=== PATIENT | male | born 1950 | race Caucasian/White ===

== ENCOUNTER 2024-08-03 18:04 | Inpatient (IN) | payer MEDICARE, OTHER ==
[2024-08-03 21:02] VITALS: BMI 34.4
[2024-08-03] MEDS ORDERED: Ondansetron ODT 4 MG TAB SL PRN (21:57)
[2024-08-03] MEDS: hydrALAZINE 25 MG TAB PO SCH (22:20)
[2024-08-03] MEDS: NIFEdipine XL 30 MG ER.TAB PO SCH (22:21)
[2024-08-03] MEDS: levETIRAcetam 500 MG TAB PO SCH (22:21)
[2024-08-03] MEDS: Sacubitril 49 MG/Valsartan 51 MG TABLET PO SCH (22:21)
[2024-08-04 06:37] VITALS: BMI 34.4
[2024-08-04 07:21] VITALS: BP 159/78; TEMP 97.5
[2024-08-04] MEDS: Cyanocobalamin (Vitamin B-12) 1,000 MCG TAB PO SCH (08:03)
[2024-08-04] MEDS: hydrALAZINE 25 MG TAB PO SCH (08:03)
[2024-08-04] MEDS: Sacubitril 49 MG/Valsartan 51 MG TABLET PO SCH (08:03)
[2024-08-04] MEDS: levETIRAcetam 500 MG TAB PO SCH (08:03)
[2024-08-04] MEDS: Pantoprazole DR 40 MG TAB PO SCH (08:03)
[2024-08-04] MEDS: Potassium Chloride 20 MEQ TAB PO SCH (08:04)
[2024-08-04] MEDS: Amiodarone 200 MG TAB PO SCH (08:04)
[2024-08-04] MEDS: Folic Acid 1 MG TAB PO SCH (08:04)
[2024-08-04] MEDS: NIFEdipine XL 30 MG ER.TAB PO SCH (08:04)
[2024-08-04] MEDS: Thiamine 100 MG TAB PO SCH (08:07)
[2024-08-04] MEDS ORDERED: FLU (Fluad Triv) TS24-25 (65UP)/MF59C/PF 45 MCG/0.5 ML Syringe IM ONE (09:00)
[2024-08-04] MEDS: Acetaminophen 500 MG TAB PO PRN (10:00)
[2024-08-04] MEDS ORDERED: Lorazepam 0.5 MG TAB PO PRN (10:48)
[2024-08-08] MEDS ORDERED: FLU (Fluad Triv) TS24-25 (65UP)/MF59C/PF 45 MCG/0.5 ML Syringe IM ONE (12:00)
== END 2024-08-04 12:05 | disposition short-term general hospital (02) | DRG 945 ==
LOC: MADMS 20:25
PROVIDERS: ADMIT Family Medicine; ATTEND Family Medicine
PROC: F07Z9ZZ Gait Training/Functional Ambulation Treatment (ICD-10-PCS; principal; 2024-08-04)
DX: R53.1 Weakness (principal); G81.91 Hemiplegia, unspecified affecting right dominant side; R53.81 Other malaise; I48.0 Paroxysmal atrial fibrillation; I10 Essential (primary) hypertension; Z79.01 Long term (current) use of anticoagulants; Z96.653 Presence of artificial knee joint, bilateral; J44.9 Chronic obstructive pulmonary disease, unspecified; E66.01 Morbid (severe) obesity due to excess calories; Z68.34 Body mass index [BMI] 34.0-34.9, adult
CPT/HCPCS: 70450

== ENCOUNTER 2024-08-04 12:01 | Emergency (ER) | payer MEDICARE, OTHER ==
[2024-08-04] MEDS ORDERED: Ketamine 50 MG/ML (10ML VIAL) ONE (12:13)
[2024-08-04] MEDS ORDERED: Midazolam HCl 5 mg/ml Vial ONE (12:14)
[2024-08-04] MEDS ORDERED: fentaNYL 50 mcg/mL 1 mL Vial ONE ×3 (12:15→12:18)
[2024-08-04] MEDS ORDERED: EPINEPHrine 1 MG/ML VIAL ONE ×2 (12:18→12:24)
[2024-08-04 12:36] LABS: #Basophils 0.1 thou/uL (0.0-0.2); #Lymphocytes 0.9 thou/uL (1.20-3.40); #Monocytes 1.6 thou/uL (0.11-0.59); #Neutrophils 8.8 thou/uL (1.40-6.50); %Eosinophils 0.4 % (0.0-10.0); %Lymphocytes 7.5 % (21.0-51.0); %Monocytes 14.1 % (0.0-10.0); Hematocrit 35.5 % (42.0-52.0); Hemoglobin 11.7 g/dL (14.0-18.0); Mean Corpuscular HGB CONC 32.9 g/dL (32.0-36.0); Mean Corpuscular Hemoglobin 28.3 pg (27.0-31.0); Mean Platelet Volume 6.6 fL (7.4-10.4); Platelet Count 294 10x3/uL (130-400); RBC Distribution Width 12.8 % (11.5-14.5); Red Blood Cell (RBC) Count 4.12 mill/uL (4.70-6.10); White Blood Cell (WBC) Count 11.5 10x3/uL (4.8-10.8)
[2024-08-04 12:40] LABS: INR-International Normal Ratio 1.2; Prothrombin Time 14.8 sec (12.0-14.7)
[2024-08-04 12:41] LABS: PTT 30.2 sec (22.9-36.1)
[2024-08-04 12:50] LABS: Anion Gap 14 mmol/L (10-20); BUN (Urea Nitrogen) 32 mg/dL (8.4-25.7); Calc. Creatinine Clearance 0 mL/min (70-130); Carbon Dioxide 27 mmol/L (23-31); Chloride 94 mmol/L (98-107); Potassium 3.7 mmol/L (3.5-5.1); Sodium 131 mmol/L (136-145)
[2024-08-04 12:51] LABS: ALT (SGPT) 27 U/L (8-55); AST (SGOT) 30 U/L (5-34); Albumin 3.4 g/dL (3.4-4.8); Alkaline Phosphatase 83 U/L (40-110); Bilirubin, Total 0.6 mg/dL (0.2-1.2); Calcium 9.1 mg/dL (7.8-10.44); Estimated GFR 86; Globulin 3.9 g/dL (2.4-3.5); Glucose 131 mg/dL (83-110); Protein, Total 7.3 g/dL (5.8-8.1); Troponin I 0.017 ng/mL (< 0.028)
[2024-08-04] MEDS ORDERED: Sodium Chloride 0.9% 1,000 ML ONE (12:54)
[2024-08-04] MEDS ORDERED: Sodium Chloride 0.9% 300 ML ONE (12:54)
== END 2024-08-04 13:10 | disposition short-term general hospital (02) ==
LOC: MADERS 12:01
DX: I61.9 Nontraumatic intracerebral hemorrhage, unspecified (principal); I10 Essential (primary) hypertension; Z87.891 Personal history of nicotine dependence; E78.5 Hyperlipidemia, unspecified; E87.1 Hypo-osmolality and hyponatremia
CPT/HCPCS: 80053; 82962; 84484; 85025; 85610; 85730; 96374; 99284; J0171; J3010; J7030; 36416; J2250

== ENCOUNTER 2024-08-14 15:01 | Inpatient (IN) | payer MEDICARE, OTHER ==
[2024-08-14] MEDS ORDERED: FLU (Fluad Triv) TS24-25 (65UP)/MF59C/PF 45 MCG/0.5 ML Syringe IM ONE (17:15)
[2024-08-14] MEDS ORDERED: Senokot S 8.6-50 MG TAB PO PRN (17:43)
[2024-08-14] MEDS ORDERED: Ondansetron ODT 4 MG TAB PO PRN (17:43)
[2024-08-14] MEDS: Acetaminophen 325 MG TAB PO PRN (18:20)
[2024-08-14] MEDS: levETIRAcetam 500 MG TAB PO SCH (21:06)
[2024-08-14] MEDS: hydrALAZINE 25 MG TAB PO SCH (21:06)
[2024-08-14] MEDS: NIFEdipine XL 30 MG ER.TAB PO SCH (21:06)
[2024-08-14] MEDS: Sacubitril 49 MG/Valsartan 51 MG TABLET PO SCH (21:06)
[2024-08-14] MEDS: Rosuvastatin 10 MG TAB PO SCH (21:07)
[2024-08-14] MEDS: Lidocaine 4% Patch TD SCH (21:07)
[2024-08-14] MEDS: Diclofenac 1% 100 GM Topical GEL TP SCH (21:07)
[2024-08-14] MEDS: tiZANidine HCl 4 MG TAB PO PRN (22:04)
[2024-08-15] MEDS: Cyanocobalamin (Vitamin B-12) 1,000 MCG TAB PO SCH (08:49)
[2024-08-15] MEDS: Folic Acid 1 MG TAB PO SCH (08:49)
[2024-08-15] MEDS: Potassium Chloride 20 MEQ TAB PO SCH (08:50)
[2024-08-15] MEDS: Pantoprazole DR 40 MG TAB PO SCH (08:50)
[2024-08-15] MEDS: Thiamine 100 MG TAB PO SCH (08:50)
[2024-08-15] MEDS: Multivit, Therapeutic 1 TAB PO SCH (08:51)
[2024-08-15] MEDS: Amiodarone 200 MG TAB PO SCH (08:51)
[2024-08-15] MEDS: pyridOXINE 50 MG (B6) TAB PO SCH (08:53)
[2024-08-15] MEDS: Polyethylene Glycol 3350 17 GM Packet PO SCH (08:53)
[2024-08-15] MEDS: Transdermal Patch Removal TOP SCH (08:55)
[2024-08-15] MEDS: traMADol HCl 50 MG TAB PO PRN (12:44)
[2024-08-15] MEDS: FLU (Fluad Triv) TS24-25 (65UP)/MF59C/PF 45 MCG/0.5 ML Syringe IM ONE (17:26)
[2024-08-15] MEDS ORDERED: traMADol HCl 50 MG TAB PO PRN (18:28)
[2024-08-17] MEDS: Acetaminophen 325 MG TAB PO PRN (17:32)
[2024-08-18] MEDS ORDERED: Acetaminophen 500 MG TAB PO PRN (12:10)
[2024-08-18] MEDS: Acetaminophen 500 MG TAB PO SCH (12:14)
[2024-08-18] MEDS: Metoclopramide HCl 10 MG TAB PO SCH (13:06)
[2024-08-18] MEDS: Acetaminophen/Codeine 30-300mg Tablet PO PRN (17:56)
[2024-08-19] MEDS: Acetaminophen 500 MG TAB PO PRN (10:47)
[2024-08-20] MEDS: Metoclopramide HCl 10 MG TAB PO PRN (08:22)
[2024-08-21] MEDS: Acetaminophen/Codeine 30-300mg Tablet PO SCH (10:31)
[2024-08-22] MEDS ORDERED: Diclofenac 1% 100 GM Topical GEL TP PRN (10:56)
[2024-08-23 17:28] LABS: Bilirubin Negative (Negative); Blood, Urine Moderate (Negative); Clarity Hazy (Clear); Glucose, Urine (Dipstick) Negative (Negative); Ketone, Urine Negative (Negative); Leukocyte Negative (Negative); Nitrite Positive (Negative); Protein, Urine (Dipstick) 30 mg/dL (Neg-Trace); Specific Gravity, Urine 1.015 (1.005-1.030)
[2024-08-23 18:29] LABS: Anisocytosis SLIGHT = 6-15 cells (100X) (0-5/hpf); Band 12 % (5-11); Eosinophils 3 % (0-10); Hematocrit 30.2 % (42.0-52.0); Hypochromia SLIGHT = 6-15 cells (100X) (0-5/hpf); Lymphocytes 1 % (21-51); MDiff Complete? YES; Mean Corpuscular Hemoglobin 28.5 pg (27.0-31.0); Mean Corpuscular Volume 86.5 fl (78.0-98.0); Mean Platelet Volume 6.7 fL (7.4-10.4); Monocytes 11 % (0-10); Neutrophil 73 % (42-75); Platelet Adequacy Comment Appears Adequate; Platelet Count 232 10x3/uL (130-400); RBC Distribution Width 13.5 % (11.5-14.5); Red Blood Cell (RBC) Count 3.49 mill/uL (4.70-6.10); White Blood Cell (WBC) Count 12.9 10x3/uL (4.8-10.8)
[2024-08-23] MEDS: Nitrofurantoin Monohyd/M-Cryst 100 MG CAP PO SCH (21:32)
[2024-08-24 05:22] LABS: Hematocrit 28.9 % (42.0-52.0); Hemoglobin 9.8 g/dL (14.0-18.0); Mean Corpuscular HGB CONC 33.9 g/dL (32.0-36.0); Mean Corpuscular Hemoglobin 28.9 pg (27.0-31.0); Mean Corpuscular Volume 85.2 fl (78.0-98.0); Platelet Count 219 10x3/uL (130-400); RBC Distribution Width 13.2 % (11.5-14.5); White Blood Cell (WBC) Count 11.6 10x3/uL (4.8-10.8)
[2024-08-26] MEDS: Sulfameth/Trimethoprim DS 800-160mg TAB PO SCH (07:38)
[2024-08-29] MEDS: Cyanocobalamin (Vitamin B-12) 1,000 MCG TAB PO SCH (08:41)
[2024-08-31] MEDS: NIFEdipine XL 30 MG ER.TAB PO SCH (20:42)
[2024-09-01] MEDS: Metoprolol Tartrate 25 MG TAB PO SCH ×2 (10:06→22:18)
[2024-09-02] MEDS: Nystatin Cream 15 GM TUBE TOP SCH (07:21)
[2024-09-03 05:16] LABS: Hematocrit 28.6 % (42.0-52.0); Hemoglobin 9.6 g/dL (14.0-18.0); Mean Corpuscular HGB CONC 33.4 g/dL (32.0-36.0); Mean Corpuscular Hemoglobin 28.4 pg (27.0-31.0); Platelet Count 298 10x3/uL (130-400); RBC Distribution Width 13.6 % (11.5-14.5); Red Blood Cell (RBC) Count 3.36 mill/uL (4.70-6.10); White Blood Cell (WBC) Count 7.3 10x3/uL (4.8-10.8)
[2024-09-03 05:28] LABS: Anion Gap 16 mmol/L (10-20); BUN (Urea Nitrogen) 19 mg/dL (8.4-25.7); Calc. Creatinine Clearance 82 mL/min (70-130); Carbon Dioxide 21 mmol/L (23-31); Chloride 104 mmol/L (98-107); Estimated GFR 63; Glucose 107 mg/dL (83-110); Potassium 4.4 mmol/L (3.5-5.1); Sodium 137 mmol/L (136-145)
[2024-09-03 15:25] VITALS: BMI 32.6
[2024-09-03] MEDS: Betamethasone 0.1% Cream 15 GM TUBE TOP SCH (20:20)
[2024-09-07] MEDS ORDERED: hydrALAZINE 25 MG TAB PO PRN (13:58)
[2024-09-08] MEDS ORDERED: hydrALAZINE 25 MG TAB ONE (15:11)
[2024-09-08] MEDS: hydrALAZINE 25 MG TAB PO PRN (15:38)
[2024-09-08] MEDS ORDERED: Sacubitril 49 MG/Valsartan 51 MG TABLET ONE (20:11)
[2024-09-08] MEDS ORDERED: Rosuvastatin 10 MG TAB ONE (20:11)
[2024-09-08] MEDS ORDERED: NIFEdipine XL 30 MG ER.TAB ONE (20:11)
[2024-09-08] MEDS ORDERED: levETIRAcetam 500 MG TAB ONE (20:11)
[2024-09-08] MEDS: NIFEdipine XL 30 MG ER.TAB PO SCH (20:25)
[2024-09-09] MEDS ORDERED: NIFEdipine XL 30 MG ER.TAB ONE ×2 (08:11→22:00)
[2024-09-09] MEDS ORDERED: Sacubitril 49 MG/Valsartan 51 MG TABLET ONE ×2 (08:11→22:00)
[2024-09-09] MEDS ORDERED: levETIRAcetam 500 MG TAB ONE ×2 (08:11→22:00)
[2024-09-09] MEDS ORDERED: Multivit, Therapeutic 1 TAB ONE (08:11)
[2024-09-09] MEDS ORDERED: Folic Acid 1 MG TAB ONE (08:11)
[2024-09-09] MEDS ORDERED: Cyanocobalamin (Vitamin B-12) 1,000 MCG TAB ONE ×2 (08:11→09:00)
[2024-09-09] MEDS ORDERED: pyridOXINE 50 MG (B6) TAB ONE (08:11)
[2024-09-09] MEDS ORDERED: Pantoprazole DR 40 MG TAB ONE ×2 (08:11→09:00)
[2024-09-09] MEDS ORDERED: Acetaminophen 500 MG TAB ONE (08:11)
[2024-09-09] MEDS ORDERED: Thiamine 100 MG TAB ONE ×2 (08:11→09:00)
[2024-09-09] MEDS ORDERED: Potassium Chloride 20 MEQ TAB ONE (08:11)
[2024-09-09] MEDS ORDERED: Amiodarone 200 MG TAB ONE ×3 (08:11→09:00)
[2024-09-09] MEDS ORDERED: Multivitamin W/ Minerals 1 TAB ONE (09:00)
[2024-09-09] MEDS ORDERED: Rosuvastatin 20 MG TAB ONE (22:00)
[2024-09-10] MEDS ORDERED: NIFEdipine XL 90 MG ER.TAB ONE (09:00)
[2024-09-10] MEDS ORDERED: Pantoprazole DR 40 MG TAB ONE (09:00)
[2024-09-10] MEDS ORDERED: Rosuvastatin 20 MG TAB ONE (09:00)
[2024-09-10] MEDS ORDERED: pyridOXINE 50 MG (B6) TAB ONE ×2 (09:00)
[2024-09-10] MEDS ORDERED: Sacubitril 49 MG/Valsartan 51 MG TABLET ONE (09:00)
[2024-09-10] MEDS ORDERED: Multivitamin W/ Minerals 1 TAB ONE (09:00)
[2024-09-10] MEDS ORDERED: Thiamine 100 MG TAB ONE (09:00)
[2024-09-10] MEDS ORDERED: Cyanocobalamin (Vitamin B-12) 1,000 MCG TAB ONE (09:00)
[2024-09-11] MEDS ORDERED: NIFEdipine XL 60 MG ER.TAB ONE (09:00)
[2024-09-11] MEDS ORDERED: Sacubitril 49 MG/Valsartan 51 MG TABLET ONE (09:00)
[2024-09-11] MEDS ORDERED: Rosuvastatin 20 MG TAB ONE (09:00)
[2024-09-11] MEDS ORDERED: levETIRAcetam 500 MG TAB ONE (09:00)
[2024-09-11] MEDS: pyridOXINE 50 MG (B6) TAB ONE (12:10)
[2024-09-11] MEDS: NIFEdipine XL 30 MG ER.TAB PO SCH (20:00)
[2024-09-11] MEDS: Sacubitril 49 MG/Valsartan 51 MG TABLET PO SCH (20:01)
[2024-09-14] MEDS: Loperamide HCl 2 MG CAP PO PRN (09:25)
[2024-09-14] MEDS: Saccharomyces boulardii 250 MG CAP PO SCH (09:26)
[2024-09-14] MEDS: NIFEdipine XL 30 MG ER.TAB PO SCH (21:54)
[2024-09-15] MEDS ORDERED: Polyethylene Glycol 3350 17 GM Packet PO PRN (12:17)
[2024-09-16 04:41] VITALS: BMI 32.3
[2024-09-16 17:43] LABS: Campy jejuni + coli by PCR Negative (Negative); STEC Shiga Toxin 1+2 Negative (Negative); Salmonella spp. by PCR Negative (Negative); Shigella spp + EIEC by PCR Negative (Negative)
[2024-09-18 07:26] VITALS: BP 115/64; TEMP 99
== END 2024-09-18 09:30 | disposition home or self-care (01) | DRG 947 ==
LOC: MADMS 16:35
PROVIDERS: ADMIT Family Medicine; ATTEND Family Medicine
DX: R53.81 Other malaise (principal); I61.9 Nontraumatic intracerebral hemorrhage, unspecified; G91.9 Hydrocephalus, unspecified; E87.1 Hypo-osmolality and hyponatremia; N39.0 Urinary tract infection, site not specified; G40.909 Epilepsy, unspecified, not intractable, without status epilepticus; I48.0 Paroxysmal atrial fibrillation; I10 Essential (primary) hypertension; E78.5 Hyperlipidemia, unspecified; E03.9 Hypothyroidism, unspecified; Z96.653 Presence of artificial knee joint, bilateral; Z98.890 Other specified postprocedural states; Z79.899 Other long term (current) drug therapy; B37.2 Candidiasis of skin and nail
CPT/HCPCS: 36415; 36416; 70450; 71045; 74018; 80048; 81003; 85025; 85027; 87077; 87086; 87186; 87324; 87449; 87505; 90653

== ENCOUNTER 2024-08-15 19:58 | Emergency (ER) | payer MEDICARE ==
[2024-08-15 20:37] LABS: #Basophils 0.1 thou/uL (0.0-0.2); #Eosinophils 0.2 thou/uL (0.0-0.7); #Lymphocytes 0.8 thou/uL (1.20-3.40); #Monocytes 1.2 thou/uL (0.11-0.59); #Neutrophils 7.6 thou/uL (1.40-6.50); %Basophils 0.6 % (0.0-1.0); %Eosinophils 1.8 % (0.0-10.0); %Lymphocytes 7.9 % (21.0-51.0); %Monocytes 11.9 % (0.0-10.0); %Neutrophils 77.8 % (42.0-75.0); Hematocrit 30.1 % (42.0-52.0); Hemoglobin 10.1 g/dL (14.0-18.0); Mean Corpuscular HGB CONC 33.5 g/dL (32.0-36.0); Mean Corpuscular Hemoglobin 28.6 pg (27.0-31.0); Mean Corpuscular Volume 85.3 fl (78.0-98.0); Mean Platelet Volume 7.2 fL (7.4-10.4); Platelet Count 223 10x3/uL (130-400); RBC Distribution Width 13.2 % (11.5-14.5); Red Blood Cell (RBC) Count 3.53 mill/uL (4.70-6.10); White Blood Cell (WBC) Count 9.8 10x3/uL (4.8-10.8)
[2024-08-15 20:41] LABS: Bilirubin Negative (Negative); Blood, Urine Negative (Negative); Clarity Clear (Clear); Glucose, Urine (Dipstick) Negative (Negative); Ketone, Urine Negative (Negative); Leukocyte Negative (Negative); Nitrite Negative (Negative); Protein, Urine (Dipstick) Negative (Neg-Trace); Urobilinogen 0.2 mg/dL (Less than 2); pH, Urine 6.5 (5.0-9.0)
[2024-08-15 20:44] LABS: CAUTI Indications for Culture Alt mental st,lethar; Squamous Epithelial 0-3 HPF (0-3); WBC/HPF 0-3 HPF (0-3)
[2024-08-15 20:45] LABS: Urine Culture Reflex No No
[2024-08-15 20:48] LABS: INR-International Normal Ratio 1.2; PTT 29.8 sec (22.9-36.1); Prothrombin Time 14.8 sec (12.0-14.7)
[2024-08-15 20:57] LABS: ALT (SGPT) 16 U/L (8-55); AST (SGOT) 24 U/L (5-34); Albumin 2.9 g/dL (3.4-4.8); Alkaline Phosphatase 79 U/L (40-110); Anion Gap 15 mmol/L (10-20); BUN (Urea Nitrogen) 13 mg/dL (8.4-25.7); Bilirubin, Total 0.5 mg/dL (0.2-1.2); Calc. Creatinine Clearance 0 mL/min (70-130); Carbon Dioxide 25 mmol/L (23-31); Chloride 99 mmol/L (98-107); Estimated GFR 90; Globulin 3.3 g/dL (2.4-3.5); Glucose 118 mg/dL (83-110); Potassium 3.6 mmol/L (3.5-5.1); Protein, Total 6.2 g/dL (5.8-8.1); Sodium 135 mmol/L (136-145)
== END 2024-08-15 22:30 | disposition critical access hospital (66) ==
LOC: MADERS 19:58
DX: R51.9 Headache, unspecified (principal); R40.0 Somnolence; I10 Essential (primary) hypertension; E78.5 Hyperlipidemia, unspecified; Z87.891 Personal history of nicotine dependence; Z79.899 Other long term (current) drug therapy; Z55.6 Problems related to health literacy
CPT/HCPCS: 36415; 51702; 70450; 71045; 80053; 81001; 85025; 85610; 85730; 93005

== ENCOUNTER 2024-10-29 10:12 | Outpatient (CLI) | payer MEDICARE | END 2024-10-29 10:13 | disposition home or self-care (01) | LOC: MADCT 10:12 | PROVIDERS: ATTEND Neurological Surgery | DX: G91.9 Hydrocephalus, unspecified (principal); G96.00 Cerebrospinal fluid leak, unspecified | CPT/HCPCS: 70450 ==

== ENCOUNTER 2024-12-05 14:22 | Emergency (ER) | payer MEDICARE | END 2024-12-05 15:00 | disposition home or self-care (01) | LOC: MADERS 14:22 | DX: L03.314 Cellulitis of groin (principal); I10 Essential (primary) hypertension; J44.9 Chronic obstructive pulmonary disease, unspecified; Z87.891 Personal history of nicotine dependence | CPT/HCPCS: 87070; 87077; 87205; 99284 ==

== ENCOUNTER 2025-06-20 08:53 | Emergency (ER) | payer MEDICARE ==
[2025-06-20 09:26] LABS: Glucose, Urine (Dipstick) Negative (Negative); Leukocyte Moderate (Negative); Protein, Urine (Dipstick) 30 mg/dL (Neg-Trace); Specific Gravity, Urine 1.015 (1.005-1.030)
[2025-06-20 09:33] LABS: Bacteria/HPF 3+ HPF (None Seen); CAUTI Indications for Culture Dysuria,urgency,freq; WBC/HPF Greater Than 50 HPF (0-3)
[2025-06-20 09:34] LABS: Urine Culture Reflex Yes Yes
[2025-06-20] MEDS ORDERED: cefTRIAXone (ROCEPHIN) 1 GM VIAL ONE (09:56)
== END 2025-06-20 10:26 | disposition home or self-care (01) ==
LOC: MADERS 08:53
DX: N39.0 Urinary tract infection, site not specified (principal); I10 Essential (primary) hypertension; J44.9 Chronic obstructive pulmonary disease, unspecified; K21.9 Gastro-esophageal reflux disease without esophagitis; E78.00 Pure hypercholesterolemia, unspecified; Z86.73 Personal history of transient ischemic attack (TIA), and cerebral infarction without residual deficits; Z87.891 Personal history of nicotine dependence; Z79.899 Other long term (current) drug therapy
CPT/HCPCS: 81001; 87077; 87086; 87186; 96372; 99283; J0696

== ENCOUNTER 2025-08-19 12:51 | Emergency (ER) | payer MEDICARE ==
[2025-08-19 13:57] LABS: Glucose, Urine (Dipstick) Negative (Negative); Leukocyte Large (Negative); Protein, Urine (Dipstick) 30 mg/dL (Neg-Trace); Specific Gravity, Urine 1.015 (1.005-1.030)
[2025-08-19 14:05] LABS: CAUTI Indications for Culture Dysuria,urgency,freq; WBC/HPF Greater Than 50 HPF (0-3)
[2025-08-19 14:06] LABS: Bacteria/HPF 4+ HPF (None Seen)
[2025-08-19 14:07] LABS: Urine Culture Reflex Yes Yes
[2025-08-19 14:15] LABS: ALT (SGPT) 12 U/L (Less than 45); AST (SGOT) 21 U/L (11-34); Albumin 3.8 g/dL (3.1-4.5); Alkaline Phosphatase 99 U/L (40-110); Anion Gap 15 mmol/L (10-20); BUN (Urea Nitrogen) 16 mg/dL (8.4-25.7); Bilirubin, Total 0.6 mg/dL (0.3-1.2); Calc. Creatinine Clearance 0 mL/min (70-130); Calcium 9.4 mg/dL (7.8-10.44); Carbon Dioxide 24 mmol/L (23-31); Chloride 89 mmol/L (98-107); Globulin 4.2 g/dL (2.4-3.5); Glucose 86 mg/dL (83-110); Potassium 4.4 mmol/L (3.5-5.1); Sodium 124 mmol/L (136-145)
[2025-08-19 14:17] LABS: Hematocrit 33.6 % (42.0-52.0); Hemoglobin 11.2 g/dL (14.0-18.0); MDiff Complete? YES; Mean Corpuscular Hemoglobin 30.8 pg (27.0-31.0); Mean Corpuscular Volume 92.6 fl (78.0-98.0); Platelet Adequacy Comment Appears Adequate; Platelet Count 277 10x3/uL (130-400); Red Blood Cell (RBC) Count 3.63 mill/uL (4.70-6.10); White Blood Cell (WBC) Count 13.3 10x3/uL (4.8-10.8)
[2025-08-19] MEDS ORDERED: cefTRIAXone (ROCEPHIN) 1 GM VIAL ONE (14:51)
== END 2025-08-19 16:45 | disposition home or self-care (01) ==
LOC: MADERS 12:51
DX: K40.90 Unilateral inguinal hernia, without obstruction or gangrene, not specified as recurrent (principal); A09 Infectious gastroenteritis and colitis, unspecified; N39.0 Urinary tract infection, site not specified; I10 Essential (primary) hypertension; I48.0 Paroxysmal atrial fibrillation; E78.00 Pure hypercholesterolemia, unspecified; E66.01 Morbid (severe) obesity due to excess calories; K21.9 Gastro-esophageal reflux disease without esophagitis; J44.9 Chronic obstructive pulmonary disease, unspecified; Z86.73 Personal history of transient ischemic attack (TIA), and cerebral infarction without residual deficits; Z79.899 Other long term (current) drug therapy; Z87.891 Personal history of nicotine dependence
CPT/HCPCS: 74177; 80053; 81001; 83605; 85025; 87077; 87086; 96365; J0696